=== PATIENT | female | born 1955 | race Caucasian/White ===

== ENCOUNTER 2018-03-31 07:21 | Emergency (ER) | payer MEDICAID ==
[2018-03-31 07:59] LABS: APPEARANCE CLEAR (CLEAR); BILIRUBIN NEGATIVE (NEGATIVE); COLOR YELLOW (YELLOW); GLUCOSE 50 mg/dL (NEGATIVE); KETONE NEGATIVE (NEGATIVE); NITRITE NEGATIVE (NEGATIVE); PROTEIN 2+ mg/dL (NEGATIVE); UROBILINOGEN NORMAL (NORMAL)
[2018-03-31 08:02] LABS: BACTERIA FEW /hpf (NONE SEEN); EPITHELIAL CELLS 0-5 /hpf (0-5); RED CELLS - URINE 0-5 /hpf (0-5)
[2018-03-31 08:40] LABS: BASOPHILS 0.1 % (0-2); EOSINOPHILS 0.7 % (0-7); HEMATOCRIT 34.8 % (36.0-48.0); HEMOGLOBIN 11.8 g/dL (12-16); IMMATURE GRANULOCYTES 0.1 % (0-5); LYMPHOCYTES 14.8 % (15-50); MCH 29.2 pg (26.0-34.0); MCHC 33.9 g/dL (31.0-37.0); MCV 86.1 fL (80.0-100.0); MEAN PLATELET VOLUME 9.3 fL (7.4-10.4); MONOCYTES 5.3 % (2-11); PLATELET COUNT 175 10x3/uL (130-400); RBC 4.04 10x6/uL (4.00-5.40); RDW 13.5 % (11.5-14.5); WBC 7.4 10x3/uL (4.8-10.8)
[2018-03-31 08:53] LABS: ALBUMIN 3.5 g/dL (3.4-5.0); ANION GAP 12.6 mmol/L (8-16); BILIRUBIN - TOTAL 0.3 mg/dL (0.2-1.3); CARBON DIOXIDE 26.1 mmol/L (21.0-32.0); CREATININE - SERUM 0.9 mg/dL (0.6-1.3); MAGNESIUM - SERUM 1.6 mg/dL (1.8-2.4); POTASSIUM - SERUM 3.7 mmol/L (3.5-5.1); PROTEIN - SERUM 6.7 g/dL (6.4-8.2)
[2018-04-09] MEDS ORDERED: GLUCOPHAGE1000 MG PO (15:16)
[2018-04-09] MEDS ORDERED: PRINZIDE 20/12.1 TA1 PO (15:16)
[2018-04-09] MEDS ORDERED: K-TAB10 MEQ PO (15:17)
[2018-04-09] MEDS ORDERED: OMEPRAZOLE20 M1 PO (15:17)
[2018-04-09] MEDS ORDERED: MOBIC7.5 MG PO (15:17)
[2018-04-09] MEDS ORDERED: COREG6.25 MG PO (15:17)
[2018-04-09] MEDS ORDERED: BUSPAR 15 MG TA15 MG PO (15:18)
[2018-04-09] MEDS ORDERED: PROAIR HFA8.5 GM INH (15:27)
[2018-04-11 09:09] VITALS: BMI 32.9
== END 2018-03-31 10:30 | disposition home or self-care (01) ==
LOC: D.ER 07:21
PROVIDERS: Emergency Medicine
DX: N39.0 Urinary tract infection, site not specified (principal); D64.9 Anemia, unspecified; N23 Unspecified renal colic; N20.1 Calculus of ureter; E83.42 Hypomagnesemia; E11.9 Type 2 diabetes mellitus without complications; I10 Essential (primary) hypertension; K21.9 Gastro-esophageal reflux disease without esophagitis

== ENCOUNTER 2018-04-11 07:50 | Day surgery (SDC) | payer MEDICAID ==
[2018-04-09 15:54] LABS: HEMATOCRIT 36.8 % (36.0-48.0); HEMOGLOBIN 12.6 g/dL (12-16); MCH 29.6 pg (26.0-34.0); MCHC 34.2 g/dL (31.0-37.0); MCV 86.6 fL (80.0-100.0); MEAN PLATELET VOLUME 9.3 fL (7.4-10.4); RBC 4.25 10x6/uL (4.00-5.40); RDW 13.8 % (11.5-14.5); WBC 5.5 10x3/uL (4.8-10.8)
[2018-04-09 16:11] LABS: APTT 28.9 SECONDS (22.8-39.4); INR 0.99 (0.85-1.17); PROTIME 12.7 SECONDS (11.6-15.0)
[2018-04-09 16:13] LABS: CALC OSMOLALITY 288 mosm/kg (275-300); CALCIUM 9.5 mg/dL (8.5-10.1); CARBON DIOXIDE 27.1 mmol/L (21.0-32.0); CHLORIDE - SERUM 105 mmol/L (98-107); CREATININE - SERUM 0.8 mg/dL (0.6-1.3); GLUCOSE 177 mg/dL (74-106); POTASSIUM - SERUM 3.6 mmol/L (3.5-5.1); SODIUM 142 mmol/L (136-145); UREA NITROGEN 19 mg/dL (7-18); eGFR NON AFRICAN AMERICAN 77 mL/min (90-120)
[~2018-04-11] VITALS: Ht 154.9 cm; Wt 78.9 kg
--- NOTE | ~2018-04-11 | OP ---
PATIENT NAME: LARISA CISNEROS MEDICAL RECORD: [id number] :53 LOCATION:[id number] ADMISSION DATE: SURGEON: WIL SPEARS MD DATE OF OPERATION: 04/11/2018 SURGEON: Wil Spears MD ANESTHESIA: General anesthesia by Dr. Fabien Spencer. PREOPERATIVE DIAGNOSIS: A 12 mm right renal stone at the ureteropelvic junction. PROCEDURE: Right percutaneous nephrolithotomy. FINDINGS: Radiodense right renal stone at the UP junction. SPECIMENS: Renal stone. BLOOD LOSS: None. CLINICAL HISTORY: This is a 62-year-old female, who was referred from the Emergency Room for acute right flank pain, which started on 03/28/2018. She has had calcium kidney stones in the past. She had a CT scan performed in the Emergency Room, which showed a 1.2 cm right renal pelvis stone obstructing the UP junction. There is also a punctate left lower pole renal stone. She was given pain medications and she came to see me. She has a past medical history of diabetes mellitus, hypertension, GERD, and asthma. On discussion with the patient with respect to how to get rid of the stone. The options were either ESWL or percutaneous nephrolithotomy. With the ESWL the problem is that the large stone burden would have to be passed down the ureter and it may be a difficult thing to do. She would rather have the stone out in 1 go and therefore, we scheduled her to have a right percutaneous nephrolithotomy. Earlier today, she had a mid pole access for the PCNL by interventional radiology. They left a nephroureteral catheter in place. We are now going to use the nephroureteral catheter to perform the procedure. SHE IS ALLERGIC TO BACTRIM AND PENICILLIN. She has been given Levaquin prior to the interventional radiology procedure. Therefore, we did not need to give her any further antibiotics. DESCRIPTION OF PROCEDURE: The patient was given induction of general anesthesia in supine position on her stretcher. She was then put into frog-leg position and prepped and draped. We performed cystoscopy and we were able to see the distal end of the nephroureteral catheter in the bladder. Grasping forceps were used to pull the nephroureteral catheter distal end out through the urethra. This way when we put our wire down from above, we can put a clamp on the wire and that will prevent backwards migration and loss of access of the tract. Once the nephroureteral catheter was placed out of the urethra. A 16-Slovenian Espinosa catheter was put into the bladder and put to bag drainage. The patient was then turned to the prone position on the A[place]ab frame. All pressure points were padded. The patient was then reprepped and redraped. An Amplatz Super Stiff wire was placed down the nephroureteral catheter lumen. It exited the urethra. Here, the nurse was able to put a hemostat on the wire to prevent its backward migration. The nephroureteral catheter was then completely removed. A small OPERATIVE REPORT [id number] LARISA CISNEROS incision was made on either side of the Super Stiff wire with a #11 blade. A dual lumen catheter was then put into the proximal ureter. Through the second lumen, we placed a sensor wire down into the bladder. Once the wires were in correct position, the dual lumen catheter was removed, leaving the [address] The sensor wire acts as a safety wire and this was clamped to the drapes. We worked over the Super Stiff wire. The NephroMax balloon dilator was then used to dilate the tract with 20 atmospheres of pressure. The 30-Slovenian working sheath was inserted over the inflated balloon into the renal pelvis. The balloon was then completely deflated and removed entirely. The nephroscope was placed into the kidney. We were able to immediately see the stone. Although, the length is 12 mm, the width is somewhat less than 1 cm. Therefore, I was able to get a Mdyz-P-Kccbms basket around the stone and the stone was entirely removed in 1 go. A repeat nephroscopy showed no further stones specimens in the kidney. The stone will be sent to pathology for stone analysis. The nephroscope was then removed and the 24-Slovenian Malecot nephrostomy tube was inserted down the working sheath and into the renal pelvis. Once the nephrostomy tube was in correct position, the working sheath was removed. The safety wire was entirely removed. The working wire which is the Super Stiff wire was removed by the circulating nurse completely pulling the wire out through the urethra. The nephrostomy tube was sutured to the skin using a 2-0 nylon drain suture. Dressings were applied and the nephrostomy tube was put to bag drainage. The patient was then turned back on to the supine position on the stretcher. Here, the Espinosa catheter was then removed. The patient will be kept for 23-hour observation for pain control and she will probably go home tomorrow with the nephrostomy tube in place. She will come to the office later on to have the nephrostomy tube removed. TRANSINT:[id number] Voice Confirmation ID: [id number] DOCUMENT ID: [id number] WIL SPEARS MD at 0741 CC: [id number] DICTATION DATE: 04/11/18 1538 PHARMACY INFORMATICS SPECIALIST: 04/11/18 2048 [id number] [place] [address]
--- NOTE | ~2018-04-11 | HEMODYNAMI ---
PATIENT:LARISA CISNEROS MEDICAL RECORD: [id number] : 53 [facility] AD[facility] DATE: 04/11/18 Generatedon:04/11/201811:02 Patient name: LARISA CISNEROS Patient #: [id number] SSN: : 1955 Date of study: 04/11/2018 Page: Of Hemodynamic Procedure Report Patient Data Patient Demographics Procedure consent was obtained First Name: LARISA Gender: Female Last Name: BLAYNE : 1955 Patient #: [id number] Age: 62 year(s) Race: Unknown Additional ID: [id number] Contact details Address: [place] [address] State: [place] City: [place] Zip code: [address] Admission Admission Data Admission Date: 04/11/2018 Admission Time: 7:50 Procedure Procedure Types Cath Procedure Peripheral Cath Diagnostic Procedure Nephro Perc Neph Uret Cath Procedure Description Procedure Date Procedure Date: 04/11/2018 Procedure Start Time: 10:18 Procedure Staff Name Mini Cadena MD Performing Physician Kady Meyers RT Monitor Leatha Castaneda RN Nurse Bárbara Early RN Nurse Flaco James RT Scrub Procedure Data Cath Procedure Fluoroscopy Diagnostic fluoroscopy Total fluoroscopy Time: 9.1 time: 9.1 min min Diagnostic fluoroscopy Total fluoroscopy dose: 264 dose: 264 mGy mGy Contrast Material Contrast Material Type Amount (ml) Isovue 300 25 Procedure Medications Medication Administration Route Dosage Heparin Flush Bag added to field 1 bags (1000units/500ml NS) Lidocaine 1% added to field 20 Levaquin I.V.P.B 500 mg Oxygen etCO2 Nasal cannula 4 l/min Versed I.V. 2 mg Fentanyl I.V. 50 mcg Fentanyl I.V. 50 mcg Hemodynamics Rest Heart Rate: 67 (bpm) Snapshots Pre Cath Intra NCS Post Cath Vital Signs Time Heart Resp SPO2 etCO2 NIBP (mmHg) Rhythm Pain Sedation Rate (ipm) (%) (mmHg) Status Level (bpm) 10:02:22 79 5 100 36.7 Out of NSR 0 (11) 10(A) range , No pain 10:03:32 68 19 100 35.2 157/89(135) NSR 0 (11) 10(A) , No pain 10:07:54 72 9 98 33.7 94/71(86) NSR 0 (11) 10(A) , No pain 10:12:52 71 20 97 34.4 Measuring NSR 0 (11) 9(A) , No pain 10:13:34 68 15 97 38.1 149/85(116) NSR 0 (11) 9(A) , No pain 10:17:52 74 19 95 37.4 130/72(106) NSR 0 (11) 8(A) , No pain 10:22:08 70 18 96 40.4 139/74(111) NSR 0 (11) 8(A) , No pain 10:27:07 74 18 94 38.9 Measuring NSR 0 (11) 8(A) , No pain 10:27:09 75 18 95 38.9 139/78(115) NSR 1 (11) 8(A) , Very mild 10:31:27 71 18 93 38.9 142/75(110) NSR 0 (11) 8(A) , No pain 10:35:47 66 18 93 40.4 133/78(117) NSR 0 (11) 8(A) , No pain 10:40:46 67 21 93 39.6 Measuring NSR 0 (11) 8(A) , No pain 10:40:52 70 21 92 39.6 162/80(110) NSR 0 (11) 8(A) , No pain 10:45:14 71 19 95 39.6 145/78(131) NSR 0 (11) 8(A) , No pain 10:49:34 69 20 90 36.6 153/85(130) NSR 0 (11) 8(A) , No pain 10:53:57 69 19 91 40.4 147/80(128) NSR 0 (11) 8(A) , No pain 10:58:15 71 17 89 39.6 145/78(123) NSR 0 (11) 8(A) , No pain Medications Time Medication Route Dose Verified Delivered Reason Notes Effec tiveness by by 10:08:15 Heparin Flush added 1 Bag to bags (1000units/500ml field NS) 10:08:29 Lidocaine 1% added 20ml to vial field 10:11:57 Levaquin I.V.P.B 500mg M Sarah Zhang Per MD Castaneda RN protocol 10:12:15 Oxygen etCO2 4 M Sarah Zhang Per Nasal l/min MD Castaneda RN protocol cannula 10:14:08 Versed I.V. 2 mg M Sarah Yingine for l y MD Castaneda RN sedation sleeping @ 10:18:28 10:14:25 Fentanyl I.V. 50 M Sarah Yingine for l y mcg MD Castaneda RN sedation sleeping @ 10:18:32 10:29:43 Fentanyl I.V. 50 M Sarah Cadena Leatha for Ana Maria y eduardo Castaneda RN sedation sleeping @ 10:34:01 Procedure Log Time Note 9:52:02 Flaco James RT (R) (CV) sent for patient. Start room use. 9:52:05 Time tracking: Regular hours (M-F 7:00 - 5:00) 9:52:13 Plan of Care:Hemodynamics will remain stable., Cardiac rhythm will remain stable., Comfort level will be maintained., Respiratory function will remain adequate., Patient/ family verbilizes understanding of procedure., Procedure tolerated without complication., Recovers from procedure without complications.. 9:52:25 Patient received from Outpatients to IR Alert and oriented. Tansferred to table in Prone position. 9:52:29 Warm blankets applied for patient comfort. 9:53:06 Correct patient and procedure confirmed by team. 9:53:09 Signed procedure consent form obtained from patient. 9:53:12 ECG and BP/O2 sat monitors applied to patient. 9:53:14 Full Disclosure recording started 9:53:18 - 9:53:24 H&P Date Dictated: 04/11/2018 Within 30 days and on chart.. 9:53:27 Pre-procedure instructions explained to patient. 9:53:28 Pre-op teaching completed and patient verbalized understanding. 10:00:29 Family in waiting room. 10:00:38 Patient NPO since Midnight. 10:00:55 Is the patient allergic to Iodine/contrast media? No. 10:01:09 Vital chart was started 10:01:35 Baseline sample Acquired. 10:01:54 Was the patient premedicated? No 10:01:59 Is patient on blood thinner?No 10:02:05 Patient diabetic? Yes. 10:02:09 If diabetic: On Metformin? Yes 10:02:35 If on Metformin: Last Dose? 04/10/2018 10:03:01 Patient not . Patient is over age 55. 10:03:03 ----Pre-sedation anethsthesia assessment.---- 10:03:08 Previous problem with sedation/anesthesia? No ? 10:03:11 Snore? Yes 10:03:13 Sleep apnea? No 10:03:16 Deviated septum? No 10:03:19 Opens mouth fully? Yes 10:03:22 Sticks out tongue? Yes 10:03:29 Airway obstruction? No ? 10:03:35 Dentures? yes, in her car ? 10:06:45 Patient pain scale 0/10 ?. 10:06:56 IV patent on arrival in right hand with 0.9% NaCl at O. 10:07:24 Right Lumbar was prepped with chlora-prep and draped in sterile fashion . 10:07:26 Alarms reviewed by R. N. 10:07:28 Sharps counted by scrub and verified by R.N. 10:07:37 Use device set IR Diagnostic 10:07:42 Bag Decanter (2002S) opened to sterile field. 10:07:44 Sterile Angiographic Pack opened to sterile field. 10:07:45 Tegaderm 4 x 4 (1626W) opened to sterile field. 10:08:15 Heparin Flush Bag (1000units/500ml NS) 1 bags added to field was administered by ; ; 10:08:29 Lidocaine 1% 20ml vial added to field was administered by ; ; 10:09:23 CHIBA 20 X 15 needle opened to sterile field. 10:09:24 Tegaderm 6 x 8 (1628) opened to sterile field. 10:09:27 GLIDE CATHETER 5FR ANGLED 65cm (CG507) opened to sterile field. 10:10:52 KIT, INTRODUCER ACCUSTICK II W/C ([id number]) opened to sterile field. 10:11:57 Levaquin 500mg I.V.P.B was administered by Leatha Castaneda RN; Per protocol; 10:12:15 Oxygen 4 l/min etCO2 Nasal cannula was administered by Leatha Castaneda RN; Per protocol; 10:: Physician arrived 10:: --------ALL STOP TIME OUT------ :: Final Timeout: patient, procedure, and site verified with staff and physician. All members of the team are in agreement. 10::38 Lumbar site verified by team. 10::48 Sedation plan: IV Moderate Sedation Medication:Versed, Fentanyl 10:13:58 Procedure started. 10:14:08 Versed 2 mg I.V. was administered by Leatha Castaneda RN; for sedation; 10:14:25 Fentanyl 50 mcg I.V. was administered by Leatha Castaneda RN; for sedation; 10:18:28 Effectiveness of Versed delivered @ 10:14:08 is: Mostly sleeping 10:18:31 Local anesthetic to Lumbar area with Lidocaine 1% by Dodie Cadena MD.INITIAL ACCESS ONLY 10:18:32 Effectiveness of Fentanyl delivered @ 10:14:25 is: Mostly sleeping 10:28:32 15X20 Chibia needle is used to obtain access into the right kidney. 10:29:43 Fentanyl 50 mcg I.V. was administered by Leatha Castaneda RN; for sedation; 10:34:01 Effectiveness of Fentanyl delivered @ 10:29:43 is: Mostly sleeping 10:38:06 NITINOL .018 80cm wire ([id number]) opened to sterile field. 10:39:45 GLIDE WIRE ANGLE 180cm (OX4771) opened to sterile field. 10:41:14 an 0.35 glidewire is advanced into the right kidney thru the accustick system. 10:41:52 TORQUE DEVICE PLASTIC .038 ( TD01) opened to sterile field. 10:48:14 the glidewire is advanced into the bladder and the accustick system removed , the a 5 Ghanaian glidecath is advanced into the right kidney 10:48:21 Procedure ended.(Physican Out) 10:48:32 4x4 tegaderm dressing is applied to the right lumbar area covering cath in place. 10:49:02 Fluoroscopy time 09.10 minutes. 10:49:11 Flurop Dose total: 264 10:49:11 Fluoroscopy dose: 264 mGy 10:49:19 Contrast amount:Isovue 300 25ml. 10:49:23 Sharps counted by scrub and verified by R.N. 10:49:30 Insertion/operative site no bleeding no hematoma. 10:49:51 Post Lumbar area:stable 10:50:03 Post procedure instruction explained to patient.Patient verbalizes understanding. 10:50:04 Patient needs reinforcement of post procedure teaching. 10:54:24 Procedure and supply charges have been captured, reviewed, submitted an d are correct. 11:01:35 Vital chart was stopped 11:01:37 See physician's report for complete and final results. 11:01:40 Report given to Outpatients. 11:01:46 Patient transfered to Outpatients with Stretcher. Device Usage Item Name Manufacture Quantity Catalog Hospital Part Current Minimal Lot# / Number Charge Number Stock Stock Serial# Code Bag Decanter Microtek 1 2001S [id number] 5 () [employer] Inc. Sterile Cardinal 1 [id number] 739190 5 Angiographic Health Pack Tegaderm 4 x 3M 1 1626W 474474 199369 [id number] 5 4 (1626W) CHIBA 20 X [employer] 1 [id number] 940124 303154 5 [id number] 15 needle Tegaderm 6 x 3M 1 1628 284599 324672 5 8 (1628) GLIDE Terumo 1 CG507 805314 429318 5 CATHETER 5FR ANGLED 65cm (CG507) KIT, [place] 1 [id number] 663375 505062 021852 5 INTRODUCER Scientific ACCUSTICK II W/C ([id number]) NITINOL .018 Medtronic 1 [id number] 679148 535246 5 80cm wire (P321100) GLIDE WIRE Terumo 1 FJ1285 101956 150665 034980 5 ANGLE 180cm (BJ4036) TORQUE [place] 1 TD01 209757 627246 986640 5 DEVICE Scientific PLASTIC .038 ( TD01) Signature Audit [place] Stage Time Signature Unsigned Intra-Procedure 04/11/2018 Kady 11:02:12 AM Luigi Soni) (CV) Signatures Monitor : Kady Signature : Luigi RT Date : Time : [place] [id number] [place] [address]
[~2018-04-11 07:50] MED LIST: BUSPAR 15 MG TA15 MG PO; COREG6.25 MG PO; GLUCOPHAGE1000 MG PO; K-TAB10 MEQ PO; MOBIC7.5 MG PO; OMEPRAZOLE20 M1 PO; PRINZIDE 20/12.1 TA1 PO; PROAIR HFA8.5 GM INH
[2018-04-11 09:09] VITALS: BP 142/74; Ht 154.9 cm; Wt 78.9 kg
[2018-04-11 15:45] VITALS: BP 161/73
[2018-04-11 16:51] VITALS: BP 161/73
[2018-04-11 21:54] VITALS: BP 154/74
[2018-04-12 02:37] VITALS: BP 148/69
[2018-04-12 05:01] VITALS: BP 132/71
[2018-04-12 09:02] VITALS: BP 149/76
[2018-04-12 13:57] VITALS: BP 119/64
[2018-04-12] MEDS ORDERED: HYDROCODON-ACE1 EAC7 PO (16:01)
[2018-04-24 11:14] LABS: CALCULI - CA OXALATE DIHYDRATE 30 % (()); CALCULI - CA OXALATE MONOHYDR 55 % (()); CALCULI - CALCIUM PHOSPHATE 15 % (()); CALCULI - COLOR Brown (()); CALCULI - SIZE 14x9x7 mm (()); CALCULI - WEIGHT 887.4 mg (())
== END 2018-04-12 17:14 | disposition home or self-care (01) ==
LOC: D.OPS 07:50 → D.PAN 12:00 → D.OPS 12:15 → D.PAN 12:15 → D.MS 16:03 → D.OPS 04-12 17:14
PROVIDERS: Anesthesiology; Urology
DX: N20.2 Calculus of kidney with calculus of ureter (principal); E11.9 Type 2 diabetes mellitus without complications; I10 Essential (primary) hypertension; K21.9 Gastro-esophageal reflux disease without esophagitis; J45.909 Unspecified asthma, uncomplicated; Z88.1 Allergy status to other antibiotic agents; Z88.0 Allergy status to penicillin; Z01.812 Encounter for preprocedural laboratory examination

== ENCOUNTER → 2018-05-16 09:08 | Outpatient (CLI) | payer MEDICAID ==
[2018-04-11 09:09] VITALS: BMI 32.9
[~2018-05-16 09:08] MED LIST changes: +HYDROCODON-ACE1 EAC7 PO
== END | disposition home or self-care (01) ==
LOC: D.US 09:08
DX: R10.9 Unspecified abdominal pain (principal)

== ENCOUNTER → 2018-05-31 07:29 | Outpatient (CLI) | payer MEDICAID ==
[2018-04-11 09:09] VITALS: BMI 32.9
== END | disposition home or self-care (01) ==
LOC: D.NM 07:29
DX: R10.11 Right upper quadrant pain (principal)

== ENCOUNTER 2018-06-08 18:00 | Outpatient (CLI) | payer MEDICAID ==
[2018-04-11 09:09] VITALS: BMI 32.9
== END 2018-06-08 23:59 | disposition home or self-care (01) ==
LOC: D.MAMMO 18:00
DX: Z12.31 Encounter for screening mammogram for malignant neoplasm of breast (principal)

== ENCOUNTER 2020-08-14 08:00 | Outpatient (CLI) | payer MEDICARE, OTHER ==
[2018-04-11 09:09] VITALS: BMI 32.9
== END 2020-08-14 12:43 | disposition home or self-care (01) ==
LOC: D.MAMMO 08:00
PROVIDERS: ATTEND Family Medicine
DX: Z12.31 Encounter for screening mammogram for malignant neoplasm of breast (principal)